=== PATIENT | male | born 1945 | race Caucasian/White ===

== ENCOUNTER 2022-08-08 13:10 | Outpatient (CLI) | payer MEDICARE, SELFPAY ==
--- NOTE | ~2022-08-08 | US_ITS ---
EXAMINATION: US carotid duplex BI DATE: 08/08/2022 13:47 INDICATION: Transient cerebral ischemic attack TECHNIQUE: Grayscale, color Doppler, and pulsed Doppler images of the cervical carotid arteries were obtained. The degree of vessel stenosis is placed in one of the following categories: normal, <50%, 5 0-69%, >=70% but less than near-occlusion, near-occlusion, or total occlusion. Note that percent sten osis relative to normal distal artery lumen diameter is indirectly measured from velocity measurement s as described by Jason, et al. Radiology 2003; 229:340-346. Notes: Normal: Peak systolic velocity <125 centimeters/sec and no plaque <50%. Peak systolic velocity <125 ( EDV <40; ICA/CCA PSV ratio <2.0; used these factors only a tandem lesions or low cardiac output or co ntralateral disease) 50-69 %: PSV 125-230 (EDV 40-100; ratio 2-4) >= 70% but less than near occlusion: PSV greater than 230 (EDV > 100; ratio> 4.0) Near Occlusion: PSV that is variable; markedly narrowed lumen Occlusion: Absent flow on color/spectral Doppler and no lumen on barreto scale. COMPARISON: None. FINDINGS: RIGHT: The right common carotid artery (CCA) peak systolic velocity (PSV) is 95 cm/s. The right internal car otid artery (ICA) PSV is 84 cm/s. The right ICA end-diastolic velocity (EDV) is 17 cm/s. The right IC A/CCA PSV ratio is 0.9. The external carotid artery (ECA) PSV is 129 cm/s. There is antegrade flow in the right vertebral artery. LEFT: The left CCA PSV is 93 cm/s. The left ICA PSV is 67 cm/s. The left ICA EDV is 26 cm/s. The left ICA/C CA PSV ratio is 0.7. The ECA PSV is 84 cm/s. There is antegrade flow in the left vertebral artery. IMPRESSION: 1. Less than 50% stenosis in the right internal carotid artery by sonographic criteria. 2. Less than 50% stenosis in the left internal carotid artery by sonographic criteria. Reviewed, dictated and finalized at location A. ING OPERATOR IMPRESSION: 1. Less than 50% stenosis in the right internal carotid artery by sonographic marcus ingram. 2. Less than 50% stenosis in the left internal carotid artery by sonographic ese garcia.
== END 2022-08-08 13:11 | disposition home or self-care (01) ==
LOC: ANHIMG 13:12
PROVIDERS: PCP Family Medicine; Visit Provider Internal Medicine Cardiovascular Disease
DX: I65.23 Occlusion and stenosis of bilateral carotid arteries (principal)
CPT/HCPCS: 93880

== ENCOUNTER 2023-08-10 11:42 | Outpatient (CLI) | payer MEDICARE, SELFPAY ==
[2023-08-10 12:40] LABS: Alanine Aminotransferase 28 U/L (6-50); Albumin Level 4.4 g/dL (3.5-5.1); Alkaline Phosphatase 109 U/L (38-126); Anion Gap 5 mmol/L (8-16); Aspartate Amino Transferase 36 U/L (17-59); Bilirubin,Total 0.8 mg/dL (0.2-1.3); Blood Urea Nitrogen 11 mg/dL (9-20); Calcium 9.2 mg/dL (8.4-10.2); Carbon Dioxide 29 mmol/L (22-30); Chloride 104 mmol/L (98-107); Cholesterol 169 mg/dL (0-200); Estimated Glomerular Filt Rate > 60; Glucose 117 mg/dL (65-110); HDL Direct 44 mg/dL; Potassium 4.4 mmol/L (3.4-5.0); Sodium 138 mmol/L (137-145); Triglycerides 166 mg/dL (<150)
[2023-08-10 12:51] LABS: LDL Cholesterol Direct 91 mg/dL
== END 2023-08-10 11:43 | disposition home or self-care (01) ==
LOC: ANHLAB 11:43
PROVIDERS: PCP Family Medicine; Visit Provider Internal Medicine Cardiovascular Disease
DX: E78.5 Hyperlipidemia, unspecified (principal)
CPT/HCPCS: 36415; 80053; 80061

== ENCOUNTER 2023-08-31 14:35 | Outpatient (CLI) | payer MEDICARE, SELFPAY ==
--- NOTE | 2023-08-31 14:49 | ECHO_ITS ---
Patient Info Name: Ismael Kelly Age: 78 years : 1945 Gender: Male Ht: 70 in Wt: 238 lbs BSA: 2.35 m2 HR: 78 bpm BP: 144 / 81 mmHg Technical Quality: Fair Exam Date: 08/31/2023 3:11 PM Exam Location: Echo Lab Patient Status: Outpatient Admit Date: 08/31/2023 Staff Ordering Physician: Jaspal Kate DO Journal Box Inspector: Isabella Ko RDCS Attending Provider: Jaspal Kate DO Referring Physician: Humble SOLOMON; Exam Type: CA echo dop color flow w con Study Info Indications I51.9 - Heart disease, unspecified Complete two-dimensional, color flow and Doppler transthoracic echocardiogram is performed with contrast to opacify the left ventricle and to improve the deliniation of the left ventricle endocardial borders. Contrast/Agitated Saline Contrast/Ag. Saline: Definity Amount: 2.00 ml Administered By: Isabella Ko [facility] Existing IV Access: Yes New IV Access: Left Site Condition: IV removed Summary 1. Definity contrast administered improved wall motion interpretation. 2. Left ventricular chamber dimension is moderately enlarged. 3. Left ventricular systolic function is moderately reduced, estimated at 40-45%. 4. The left ventricular diastolic function is grade I diastolic dysfunction. 5. E/e' 12 is mildly elevated. 6. Left atrial chamber dimension is mildly enlarged. 7. There is mild aortic valve sclerosis. 8. There is moderate to severe mitral valve regurgitation. 9. No pulmonary hypertension, estimated pulmonary arterial systolic pressure is 31 mmHg. Left Ventricle E/e' 12 is mildly elevated. Definity contrast administered improved wall motion interpretation. Left ventricular chamber dimension is moderately enlarged. Left ventricular systolic function is moderately reduced, estimated at 40-45%. The left ventricular diastolic function is grade I diastolic dysfunction. Right Ventricle Right ventricular chamber dimension is normal. Right ventricular systolic function is normal. Left Atria Left atrial chamber dimension is mildly enlarged. Right Atria Right atrial chamber dimension is normal. Aortic Valve The aortic valve is trileaflet. There is mild aortic valve sclerosis. There is no aortic valve stenosis. There is no aortic valve regurgitation. Pulmonic Valve There is no pulmonic regurgitation. Mitral Valve There is no mitral valve stenosis. There is moderate to severe mitral valve regurgitation. Tricuspid Valve There is no tricuspid valve regurgitation. No pulmonary hypertension, estimated pulmonary arterial systolic pressure is 31 mmHg. Pericardium/Pleural There is no pericardial effusion. Inferior Vena Cava Normal inferior vena cava with >50% collapse upon inspiration consistent with normal right atrial pressure, 5 mmHg. Aorta The aortic root size at the sinus of Valsalva is normal. Left Ventricular Outflow Tract Name Value Normal LVOT 2D LVOT Diameter 2.12 cm LVOT Doppler LVOT Peak Gradient 5 mmHg LVOT Mean Gradient 3 mmHg LVOT VTI 21.38 cm LVOT VTI/AV VTI Ratio 0.82 LVOT Stroke Vol
[2023-08-31] MEDS: PERFLUTREN LIPID MICROSPHERES 1.5 ML VIAL DILUTED TO 10 ML TOTAL VOLUME IV PUSH (15:50)
--- NOTE | 2023-08-31 16:22 | IVDEFINITY ---
Prior to administration of IV Definity the patient was educated on the risks and benefits of the imaging enhancing agent including potential adverse side effects. The patient verbalized understanding. Allergies were verified. No exclusion criteria were identified and at least one of the following inclusion criteria were met: 1) physician request, 2) patient technically difficult to image (per the [place] [employer]ocardi[employer] guidelines of two or more segments not discernable within the apical view), or 3) questionable left ventricular function. ?
== END 2023-08-31 14:36 | disposition home or self-care (01) ==
PROVIDERS: PCP Family Medicine; Visit Provider Internal Medicine Cardiovascular Disease
DX: I51.9 Heart disease, unspecified (principal); I35.1 Nonrheumatic aortic (valve) insufficiency; I34.0 Nonrheumatic mitral (valve) insufficiency
CPT/HCPCS: C8929; Q9957

== ENCOUNTER 2024-03-21 09:25 | Outpatient (CLI) | payer MEDICARE, SELFPAY ==
--- NOTE | ~2024-03-21 | NM_ITS ---
EXAMINATION: NM rajan stress w perfusion DATE: 03/21/2024 11:43 INDICATION: Other forms of dyspnea TECHNIQUE: Rest images were obtained following intravenous administration of 9.3 mCi Tc99m tetrofosmi n (Myoview). The patient was infused intravenously with Lexiscan (Regadenoson). Then, 32.7 mCi Tc99m tetrofosmin (Myoview) was administered intravenously, and stress images were obtained in both the sup ine and prone positions. Data was reconstructed into short axis and horizontal and vertical long axis SPECT images. Gated SPECT images were also obtained. COMPARISON: None. FINDINGS: Severe fixed perfusion defect consistent with infarct involving the apical to the basilar i nferior wall. No reversible ischemia. There is normal left ventricular chamber size, wall motion and ejection fraction. Left ventricular ejection fraction measures 52%. IMPRESSION: 1. Severe moderate-sized fixed perfusion defect consistent with infarct involving the apical to basil ar inferior wall. No evident ischemia. 2. Left ventricular ejection fraction measuring 52%. Reviewed, dictated and finalized at location B. IMPRESSION: 1. Severe moderate-sized fixed perfusion defect consistent with infarct involvi ng the apical to basilar inferior wall. No evident ischemia. 2. Left ventricular ejection fraction measuring 52%.
--- NOTE | 2024-03-21 09:38 | EST_ITS ---
Patient Info Name: Ismael Kelly Age: 78 years : 1945 Gender: Male Ht: 70 in Wt: 260 lbs BSA: 2.46 m2 HR: 105 bpm BP: 153 / 77 mmHg Exam Date: 03/21/2024 10:37 AM Exam Location: Echo Lab Patient Status: Outpatient Admit Date: 03/21/2024 Staff Ordering Physician: Jaspal Kate DO Attending Provider: Jaspal Kate DO Exercise Technologist: Angelita Ramirez RDCS Exercise Physician: Jaspal Kate DO Exam Type: CA stress rajan w NM Study Info A regadenoson stress test was performed. Summary 1. 1. Negative lexiscan stress test for ischemic ST changes by ECG criteria. 2. 2. Baseline hypertension. 3. 3. Nuclear scan to follow and will be reported separately. Please correlate with it. 4. 4. Patient informed of the above results. Protocol: Lexiscan Stress ECG Details Stage: REST Duration (min): 3 min : 19 sec HR (bpm): 104 SBP (mmHg): 153 DBP (mmHg): 77 Stage: REST Duration (min): 11 min : 37 sec HR (bpm): 100 SBP (mmHg): 153 DBP (mmHg): 77 Stage: STAGE 1 Duration (min): 1 min : 0 sec HR (bpm): 110 SBP (mmHg): 143 DBP (mmHg): 100 Stage: RECOVERY Duration (min): 1 min : 0 sec HR (bpm): 111 SBP (mmHg): 143 DBP (mmHg): 100 Stage: RECOVERY Duration (min): 2 min : 0 sec HR (bpm): 111 SBP (mmHg): 143 DBP (mmHg): 100 Stage: RECOVERY Duration (min): 3 min : 0 sec HR (bpm): 107 SBP (mmHg): 138 DBP (mmHg): 85 Stage: RECOVERY Duration (min): 3 min : 4 sec HR (bpm): 108 SBP (mmHg): 138 DBP (mmHg): 85 Rest HR: 100 bpm Peak HR: 114 bpm Rest Sys BP: 153 mmHg Peak Sys BP: 143 mmHg Max Pred HR: 140 bpm % Max Pred HR: 81 % Target HR: 119 bpm Max RPP: 16,302 bpm*mmHg Termination Reason: Completed protocol Cardiac Symptoms: Shortness of breath Total Time: 1 min : 0 sec Rest Bruce BP: 77 mmHg Peak Bruce BP: 100 mmHg Total Dose: 0.4 mg Resting ECG Sinus tachycardia. Stress ECG No ST changes. Arrhythmias None. Report Signatures
== END 2024-03-21 09:26 | disposition home or self-care (01) ==
LOC: ANHCARD 09:26
PROVIDERS: PCP Family Medicine; Visit Provider Internal Medicine Cardiovascular Disease
DX: R06.09 Other forms of dyspnea (principal)
CPT/HCPCS: 78452; 93017; A9502; J2785

== ENCOUNTER 2024-12-25 14:56 | Outpatient (CLI) | payer MEDICARE, SELFPAY ==
--- OUTSIDE RECORDS SUMMARY | 2024-12-25 15:03 | XMS_ITS | Referral Summary ---
Author Organization [facility] [address] Address [address] [place] [id number] Care Team Providers Care Biazzi Nitrator Operator Name Role Phone No, Physician Primary Care Provider [phone] Allergies No known active allergies Medications clopidogreL (PLAVIX) 75 mg tablet Take 1 tablet (75 mg total) by mouth daily 3 Active doxycycline hyclate 100 mg capsule TAKE 1 CAPSULE BY MOUTH TWICE DAILY FOR 14 DAYS 3 Active losartan (COZAAR) 100 mg tablet Take 1 tablet (100 mg total) by mouth daily 3 Active metoprolol (LOPRESSOR) 100 mg tablet Take 1 tablet (100 mg total) by mouth daily 3 Active simvastatin (ZOCOR) 40 mg tablet Take 1 tablet (40 mg total) by mouth daily 3 Active triamcinolone (KENALOG) 0.1 % creamIndications :Contact dermatitis, unspecified contact dermatitis type, unspecified trigger Apply topically 2 (two) times a day for 14 days 30 g 3 Active Active Problems No known active problems Social History Tobacco Use Types Packs/Day Years Used Date Smoking Tobacco: Never Assessed Personal Safety Answer Date Recorded Getting School Help Needed Not on file 09/08 Sex and Gender Information Value Date Recorded Sex Assigned at Not on file Legal Sex Male 2:54 PM CDT Gender Identity Not on file Sexual Orientation Not on file Last Filed Vital Signs Vital Sign Reading Time Taken Comments Blood Pressure 110/70 12/02/2022 8:35 AM CDT Pulse 80 12/02/2022 8:35 AM CDT Temperature 37.1 C (98.8 F) 12/02/2022 8:35 AM CDT Respiratory Rate 16 12/02/2022 8:35 AM CDT Oxygen Saturation 97% 12/02/2022 8:35 AM CDT Inhaled Oxygen Concentration - - Weight 108.9 kg (240 lb) 12/02/2022 8:35 AM CDT Height 182.9 cm (6') 12/02/2022 8:35 AM CDT Body Mass Index 32.55 12/02/2022 8:35 AM CDT Plan of Treatment Not on file Insurance MEDICARE [facility] MEDICARE ADVANT[employer] [facility] MEDICARE Address: [address] [address] [place] [address] Care Teams Biazzi Nitrator Operator Relationship Specialty Start Date End Date No, Physician PCP - General 12/02/22
--- OUTSIDE RECORDS SUMMARY | 2024-12-25 15:03 | XMS_ITS | Clinical Summary ---
Author Organization [address] Address [address] [place] [id number] Care Team Providers Care Hop Farmer Name Role Phone No, Physician Primary Care Provider [phone] Allergies No known active allergies Medications clopidogreL [...] on file Sexual Orientation Not on file Obstetrics History Last Filed Vital Signs Vital Sign Reading [...] 12/02/2022 8:35 AM CDT Plan of Treatment Health Maintenance Due Date Last Done Comments Depression Screening 1945 Fall Risk Assessment 1945 DTaP/Tdap/Td Vaccine (1 - Tdap) 1954 Hepatitis B Screening 1961 Pneumococcal vaccine 65+ (1 of 1 - PCV) 1993 Zoster Vaccine (1 of 2) 1993 Well Visit 65+ 2008 Influenza Vaccine (Season Ended) 2025 04/22/20 20 Insurance MEDICARE [employer] MEDICARE ADVANTAGE Care Teams Hop Farmer Relationship Specialty Start Date End Date No, Physician PCP - General 12/02/22
[2024-12-25 15:36] LABS: Basophils Absolute Auto 0.1 K/mm3 (0.0-0.1); Basophils Percent Auto 1.1 % (0.2-1.2); Eosinophils Absolute Auto 0.3 K/mm3 (0-0.3); Eosinophils Percent Auto 3.1 % (0-4.4); Hematocrit 42.7 % (42.0-52.0); Hemoglobin 13.4 g/dL (14.0-18.0); Immature Granulocyte Absolute 0.23 K/mm3 (0.00-0.031); Immature Granulocyte Percent A 2.3 % (0-0.5); Lymphocytes Absolute Auto 1.76 K/mm3 (0.9-3.2); Lymphocytes Percent Auto 17.8 % (18.3-44.2); Mean Corpuscular HGB Conc 31.4 g/dl (32-36); Mean Corpuscular Hemoglobin 26.9 pg (26-34); Mean Corpuscular Volume 85.7 fl (80-100); Mean Platelet Volume 9.9 fl (7.4-10.4); Monocytes Absolute Auto 0.8 K/mm3 (0.1-0.6); Neutrophils Absolute Auto 6.7 K/mm3 (1.3-6.7); Neutrophils Percent Auto 67.7 % (45.5-73.1); Platelet Count Result 253 k/mm3 (150-375); Red Blood Count 4.98 M/mm3 (4.6-6.20); Red Cell Distribution Width 15.6 % (11.5-14.5); White Blood Count 9.9 K/mm3 (4.5-10.0)
[2024-12-25 16:51] LABS: Alanine Aminotransferase 23 U/L (6-50); Albumin Level 4.3 g/dL (3.5-5.1); Alkaline Phosphatase 73 U/L (38-126); Anion Gap 10 mmol/L (4-12); Aspartate Amino Transferase 37 U/L (17-59); Bilirubin,Total 0.5 mg/dL (0.2-1.3); Blood Urea Nitrogen 19 mg/dL (9-20); Calcium 9.1 mg/dL (8.4-10.2); Carbon Dioxide 23 mmol/L (22-30); Chloride 104 mmol/L (98-107); Estimated Glomerular Filt Rate > 60; Glucose 104 mg/dL (65-110); Potassium 4.4 mmol/L (3.4-5.0); Sodium 137 mmol/L (137-145); Total Protein 7.8 g/dL (6.3-8.2)
[2024-12-25 17:18] LABS: Thyroid Stimulating Hormone 0.471 uIU/mL (0.465-4.680)
[2024-12-25 18:42] LABS: Hemoglobin A1C 5.6 % (<5.7)
== END 2024-12-25 14:57 | disposition home or self-care (01) ==
PROVIDERS: PCP Family Medicine; Visit Provider Student in an Organized Health Care Education/Training Program
DX: R00.0 Tachycardia, unspecified (principal); R73.9 Hyperglycemia, unspecified; I10 Essential (primary) hypertension
CPT/HCPCS: 36415; 80053; 83036; 84443; 85025